=== PATIENT | male | born 1985 | race Hispanic/Latino ===

== ENCOUNTER 2021-03-31 15:52 | Inpatient (IN) | payer OTHER ==
[2021-03-31] MEDS: CEFAZOLIN/SWI 1gm 1 GM/10 ML SYR IV SCH ×5 (06:00→23:34)
[2021-03-31] MEDS ORDERED: BUPIVACAINE 0.5% PF 10 ML VIAL ONE (17:28)
[2021-03-31] MEDS ORDERED: LIDOCAINE 1% MPF 30 ML VIAL ONE (17:28)
--- NOTE | 2021-03-31 17:37 | ER ---
Nurse's Notes [facility] Name: Luz Elena Navarro Age: 36 yrs Sex: Male : 1985 Arrival Date: 03/31/2021 Time: 15:53 Bed 26 Private MD: Diagnosis: Laceration without foreign body of left hand-open fracture, left base of 5th phalynx, flexor tendon laceration Presentation: 03/31 16:08 Chief complaint: Patient states: L hand 5th digit laceration to joint. Bleeding ll1 controlled with pressure dressing. Coronavirus screen: Client denies travel out of the [place] in the last 14 days. At this time, the client does not indicate any symptoms associated with coronavirus-19. Ebola Screen: Patient denies travel to an Ebola-affected area in the 21 days before illness onset. Initial Sepsis Screen: Does the patient meet any 2 criteria? No. Patient's initial sepsis screen is negative. Does the patient have a suspected source of infection? Yes: Skin breakdown/wound. Risk Assessment: Do you want to hurt yourself or someone else? Patient reports no desire to harm self or others. Onset of symptoms was March 31, 2021. 16:08 Method Of Arrival: Ambulatory ll1 16:08 Acuity: TAY 3 ll1 17:08 Acuity: TAY 2 ss Historical: - Allergies: 16:08 No Known Allergies; ll1 - PMHx: 16:08 None; ll1 - PSHx: 16:08 None; ll1 - Immunization history:: Flu vaccine is not up to date. - Social history:: Smoking status: Patient denies any tobacco usage or history of. - Family history:: not pertinent. Screenin:20 Abuse screen: Denies threats or abuse. Denies injuries from another. Nutritional ph screening: No deficits noted. Tuberculosis screening: No symptoms or risk factors identified. Fall Risk None identified. Assessment: 17:19 General: Dr Rios at bedside to suture. ph 17:25 General: Appears in no apparent distress. uncomfortable, Behavior is calm, cooperative, ph appropriate for age. Pain: Complains of pain in left hand. Neuro: Level of Consciousness is awake, alert, obeys commands, Oriented to person, place, time, situation. Cardiovascular: Capillary refill < 3 seconds in bilateral fingers Patient's skin is warm and dry. Respiratory: Airway is patent Respiratory effort is even, unlabored, Respiratory pattern is regular, symmetrical. GI: No signs and/or symptoms were reported involving the gastrointestinal system. Derm: Skin is healthy with good turgor, Skin is pink, warm \T\ dry. Injury Description: Amputation sustained to palmar aspect of proximal phalanx of left little finger is partial. 18:30 Reassessment: Patient appears in no apparent distress at this time. Patient and/or ph family updated on plan of care and expected duration. Pain level reassessed. Patient is alert, oriented x 3, equal unlabored respirations, skin warm/dry/pink. Patient denies pain at this time. Vital Signs: 16:08 BP 155 / 99; Pulse 76; Resp 17; Temp 97.6; Pulse Ox 100% ; Height 5 ft. 9 in. (175.26 ll1 cm); Pain 10/10; 18:30 BP 138 / 87; Pulse 74; Resp 18; Pulse Ox 98% on R/A; ph ED Course: 15:53 Patient arrived in ED. mr 16:07 Arm band placed on. ll1 16:09 Triage completed. ll1 16:19 Kayy Vaz RN is Primary Nurse. ph 16:20 Patient has correct armband on for positive identification. Bed in low position. Call ph light in reach. Side rails up X 1. Pulse ox on. NIBP on. Door closed. Noise minimized. 16:21 Patrice Rios MD is Attending Physician. millicent 17:25 Assist provider with laceration repair on MCP of left little finger that was 2.5 cm. or ph less using sutures. Set up tray. Performed by Patrice Rios MD Dressed with 4X4s, Kerlix, Patient tolerated well. 17:35 Will Cabrear MD is Hospitalizing Provider. millicent 17:41 Hand Left 3 View XRAY In Process Unspecified. EDMS 19:00 Initial lab(s) drawn, by me, sent to lab. Inserted saline lock: 22 gauge in right ph antecubital area, using aseptic technique. Blood collected. 19:11 Primary Nurse role handed off by Kayy Vaz, CYNTHIA 19:35 Patient admitted, IV remains in place. ph Administered Medications: 17:07 CANCELLED (Duplicate Order): Bupivacaine (0.5 %) 5 ml 10 ml Infiltration once millicent 17:19 Drug: Lidocaine (1 %) 5 ml Volume: 5 ml; Route: Infiltration; ph 19:37 Follow up: Response: No adverse reaction ph 19:00 Drug: Ancef (cefazolin) 1 grams Route: IVPB; Site: right antecubital; ph 19:37 Follow up: Response: No adverse reaction; IV Status: Completed infusion ph 19:05 Drug: Tetanus-Diphtheria Toxoid Adult 0.5 ml {Supervisor General: Blaast. Exp: ph 11/26/2022. Lot #: [id number]. } Route: IM; Site: right deltoid; 19:37 Follow up: Response: No adverse reaction ph 19:05 Drug: Clindamycin 900 mg Route: IVPB; Infused Over: 30 mins; Site: right antecubital; ph Outcome: 17:36 Decision to Hospitalize by Provider. [facility] 04/01 11:38 Patient left the ED. Signatures: Dispatcher [employer] EDMS Patrice Rios MD MD cha Rivera, Mary mr Smirch, Shelby, CYNTHIA RN Kayy Vaz RN RN Alec Moise RN RN ll1
--- NOTE | 2021-03-31 17:37 | EDPHYS ---
Physician Documentation [facility] Name: Luz Elena Navarro Age: 36 yrs Sex: Male : 1985 Arrival Date: 03/31/2021 Time: 15:53 Bed 26 Private MD: ED Physician Patrice Rios HPI: 03/31 17:28 This 36 yrs old Male presents to ER via Ambulatory with complaints of Finger millicent Laceration. 17:28 The patient or guardian reports decreased range of motion. The complaints affect the millicent MCP of left little finger. Context: The problem was sustained at work. Onset: The symptoms/episode began/occurred just prior to arrival. Modifying factors: The symptoms are alleviated by elevation, pressure to area, the symptoms are aggravated by movement, dependent position. Associated signs and symptoms: The patient has no apparent associated signs or symptoms. Severity of symptoms: At their worst the symptoms were moderate, in the emergency department the symptoms are unchanged. The patient has not experienced similar symptoms in the past. Historical: - Allergies: 16:08 No Known Allergies; ll1 - PMHx: 16:08 None; ll1 - PSHx: 16:08 None; ll1 - Immunization history:: Flu vaccine is not up to date. - Social history:: Smoking status: Patient denies any tobacco usage or history of. - Family history:: not pertinent. ROS: 17:28 Constitutional: Negative for fever, chills, and weight loss, Eyes: Negative for injury, millicent pain, redness, and discharge, ENT: Negative for injury, pain, and discharge, Neck: Negative for injury, pain, and swelling, Cardiovascular: Negative for chest pain, palpitations, and edema, Respiratory: Negative for shortness of breath, cough, wheezing, and pleuritic chest pain, Abdomen/GI: Negative for abdominal pain, nausea, vomiting, diarrhea, and constipation, Back: Negative for injury and pain, : Negative for injury, bleeding, discharge, and swelling, Skin: Negative for injury, rash, and discoloration, Neuro: Negative for headache, weakness, numbness, tingling, and seizure, Psych: Negative for depression, anxiety, suicide ideation, homicidal ideation, and hallucinations, Allergy/Immunology: Negative for hives, rash, and allergies, Endocrine: Negative for neck swelling, polydipsia, polyuria, polyphagia, and marked weight changes, Hematologic/Lymphatic: Negative for swollen nodes, abnormal bleeding, and unusual bruising. 17:28 MS/extremity: Positive for decreased range of motion, pain, swelling, tenderness, of the palmar aspect of proximal phalanx of left little finger. Exam: 17:28 Constitutional: This is a well developed, well nourished patient who is awake, alert, millicent and in no acute distress. Head/Face: Normocephalic, atraumatic. Eyes: Pupils equal round and reactive to light, extra-ocular motions intact. Lids and lashes normal. Conjunctiva and sclera are non-icteric and not injected. Cornea within normal limits. Periorbital areas with no swelling, redness, or edema. ENT: Nares patent. No nasal discharge, no septal abnormalities noted. Tympanic membranes are normal and external auditory canals are clear. Oropharynx with no redness, swelling, or masses, exudates, or evidence of obstruction, uvula midline. Mucous membranes moist. Neck: Trachea midline, no thyromegaly or masses palpated, and no cervical lymphadenopathy. Supple, full range of motion without nuchal rigidity, or vertebral point tenderness. No Meningismus. Chest/axilla: Normal chest wall appearance and motion. Nontender with no deformity. No lesions are appreciated. Cardiovascular: Regular rate and rhythm with a normal S1 and S2. No gallops, murmurs, or rubs. Normal PMI, no JVD. No pulse deficits. Respiratory: Lungs have equal breath sounds bilaterally, clear to auscultation and percussion. No rales, rhonchi or wheezes noted. No increased work of breathing, no retractions or nasal flaring. Abdomen/GI: Soft, non-tender, with normal bowel sounds. No distension or tympany. No guarding or rebound. No evidence of tenderness throughout. Back: No spinal tenderness. No costovertebral tenderness. Full range of motion. Male : Normal genitalia with no discharge or lesions. Skin: Warm, dry with normal turgor. Normal color with no rashes, no lesions, and no evidence of cellulitis. Neuro: Awake and alert, GCS 15, oriented to person, place, time, and situation. Cranial nerves II-XII grossly intact. Motor strength 5/5 in all extremities. Sensory grossly intact. Cerebellar exam normal. Normal gait. Psych: Awake, alert, with orientation to person, place and time. Behavior, mood, and affect are within normal limits. 17:28 Musculoskeletal/extremity: ROM: limited active range of motion, in the palmar aspect of proximal phalanx of left little finger, Circulation is intact in all extremities. Sensation intact. Compartment Syndrome exam of affected extremity: is normal. 19:31 ECG was reviewed by the Attending Physician. [facility] Vital Signs: 16:08 BP 155 / 99; Pulse 76; Resp 17; Temp 97.6; Pulse Ox 100% ; Height 5 ft. 9 in. (175.26 ll1 cm); Pain 10/10; 18:30 BP 138 / 87; Pulse 74; Resp 18; Pulse Ox 98% on R/A; ph Laceration: 17:31 Wound Repair of 1.5cm ( 0.6in ) subcutaneous laceration to palmar aspect of proximal millicent phalanx of left little finger. Skin/tissue flap noted.. Distal neuro/vascular/tendon intact. Anesthesia: Local anesthetic administered with 5 mls of 0.5% marcaine, Local anesthetic administered with 5 mls of 0.5% marcaine. Wound prep: Moderate cleansing by me, Copious irrigation. Skin closed with 5 5-0 Prolene using interrupted sutures and sterile technique. Dressed with Neosporin, 4x4's, pressure dressing. Patient tolerated well. MDM: 16:21 Patient medically screened. [facility] 17:31 Differential diagnosis: open fracture. Data reviewed: vital signs, nurses notes, [facility] radiologic studies, plain films. 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 rate is 76 beats/min, rhythm is regular, Pulse oximetry: on room air is 100 %. Test interpretation: by ED physician or midlevel provider: ECG, plain radiologic studies. Counseling: I had a detailed discussion with the patient and/or guardian regarding: the historical points, exam findings, and any diagnostic results supporting the discharge/admit diagnosis, lab results, radiology results, the need for further work-up and treatment in the hospital. 03/31 17:28 Order name: CBC with Diff [facility] 03/31 17:28 Order name: Comprehensive Metabolic Panel [facility] 03/31 18:31 Order name: COVID-19 : Document "Date of Symptom Onset" if Symptomatic. 03/31 19:20 Order name: CORONAVIRUS EDMS 03/31 19:53 Order name: CMP mw2 03/31 19:53 Order name: CBC with Diff mw2 03/31 20:05 Order name: COVID-19 : Document "Date of Symptom Onset" if Symptomatic. mw2 03/31 20:17 Order name: CBC with Automated Diff EDMS 03/31 20:17 Order name: CORONAVIRUS EDMS 03/31 20:42 Order name: CBC Smear Scan EDMS 03/31 21:20 Order name: SARS-COV-2 RT PCR EDMS 03/31 21:23 Order name: Comprehensive Metabolic Panel EDMS 04/01 04:08 Order name: CBC with Automated Diff EDMS 04/01 04:11 Order name: Basic Metabolic Panel EDHI 03/31 17:03 Order name: Dressing - Wound; Complete Time: 17:18 [facility] 03/31 17:03 Order name: Gloves, Sterile; Complete Time: 17:18 [facility] 03/31 17:03 Order name: Prolene, Sutures; Complete Time: 17:18 [facility] 03/31 17:03 Order name: Setup Suture Tray; Complete Time: 17:18 [facility] 03/31 17:09 Order name: Hand Left 3 View XRAY [facility] 03/31 17:28 Order name: Wound dressing; Complete Time: 18:30 [facility] 03/31 17:34 Order name: EKG; Complete Time: 17:34 [facility] 03/31 17:34 Order name: EKG - Nurse/Tech [facility] EC:31 Rate is 60 beats/min. Rhythm is regular. QRS Manly is Normal. [place] interval is normal. QRS millicent interval is normal. QT interval is normal. No Q waves. T waves are Normal. No ST changes noted. Clinical impression: Normal ECG and No evidence of ischemia. Interpreted by me. Reviewed by me. 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 Exp: ph 11/26/2022. Lot #: [id number]. } Route: IM; Site: right deltoid; 19:37 Follow up: Response: No adverse reaction ph 19:05 Drug: Clindamycin 900 mg Route: IVPB; Infused Over: 30 mins; Site: right antecubital; ph Disposition Summary: 03/31/21 17:36 Hospitalization Ordered Hospitalization Status: Observation [facility] Provider: Will Cabrera cha Condition: Stable millicent Problem: new millicent Symptoms: have improved [facility] Bed/Room Type: Standard [facility] Location: Telemetry/MedSurg (Inpatient)(04/01/21 11:20) [place] Room Assignment: On license of [facility](04/01/21 11:20) [place] Diagnosis - Laceration without foreign body of left hand - open fracture, left base of 5th millicent phalynx, flexor tendon laceration Forms: - Medication Reconciliation Form millicent - SBAR form [facility] Signatures: Dispatcher [employer] EDMS Patrice Rios MD MD [facility] Kayy Vaz, CYNTHIA MARIE Marci Redding RN CYNTHIA [facility] Alec Moise RN RN ll1 Corrections: (The following items were deleted from the chart) 17:07 17:03 Bupivacaine (0.5 %) 5 ml 10 ml Infiltration once ordered. [facility] 17:11 17:03 Hand Right 3 View+RAD.RAD.BRZ ordered. EDHI EDMS 23:45 17:36 Telemetry/MedSurg (observation) [facility] 23:45 17:36 [facility] 04/01 11:20 03/31 23:45 BR ER HOLD [facility] [place] 04/01 11:20 03/31 23:45 ERHOLD- [facility] [place]
--- NOTE | 2021-03-31 17:54 | RAD REPORT ---
EXAM DESCRIPTION: RAD - Hand Left 3 View - 03/31/2021 5:42 pm CLINICAL HISTORY: PAIN COMPARISON: No comparisons FINDINGS: No left hand fractures identified. No malalignment. No radiopaque foreign body per IMPRESSION: No acute osseus abnormality involving the left hand.
[2021-03-31] MEDS ORDERED: CLINDAMYCIN 900MG/D5W 900 MG/50 ML IVPB IV ONE (19:11)
[2021-03-31] MEDS ORDERED: ONDANSETRON 4 MG/2 ML VIAL ONE (19:11)
[2021-03-31] MEDS ORDERED: MORPHINE 4 MG/ML SYR ONE (19:11)
[2021-03-31] MEDS ORDERED: CEFAZOLIN/SWI 1gm 1 GM/10 ML SYR ONE (19:11)
[2021-03-31] MEDS ORDERED: TETANUS & DIPHTHERIA TOX,ADULT 0.5 ML VIAL ONE (19:11)
[2021-03-31] MEDS ORDERED: MORPHINE 4 MG/ML SYR IV PRN (19:18)
[2021-03-31] MEDS ORDERED: CEFAZOLIN/NS 1gm 1 GM/50 ML BAG IVPB SCH (19:18)
[2021-03-31] MEDS ORDERED: ONDANSETRON 4 MG/2 ML VIAL IV PRN (19:18)
[2021-03-31] MEDS ORDERED: ACETAMINOPHEN 325 MG TABLET PO PRN (19:18)
[2021-03-31] MEDS: D5 0.45 NS 1,000 ML IV SCH (19:38)
[2021-03-31] MEDS ORDERED: D5 0.45 NS 1,000 ML IV ONE (19:59)
[2021-03-31 20:08] LABS: Absolute Lymphocytes (CBC) 2.8 K/uL (0.7-4.9); Basophils % 0.6 % (0-1.3); Hematocrit 42.1 % (39.6-49.0); MPV 10.7 fL (7.6-11.3); RBC Red Blood Cell Count 4.63 M/uL (4.33-5.43)
[2021-03-31 20:41] LABS: Blood Morphology Comment NOT SEEN (NOT SEEN); Platelet Estimate ADEQ; White Blood Cell Scan OK (OK)
[2021-03-31] MEDS ORDERED: MEPERIDINE HCL 50 MG/ML IM PRN (21:04)
[2021-03-31 21:22] LABS: Albumin 4.2 g/dL (3.4-5.0); Bilirubin Total 0.3 mg/dL (0.2-1.0); Potassium 4.1 mmol/L (3.5-5.1); Protein, Total 7.5 g/dL (6.4-8.2)
[2021-03-31 22:15] VITALS: BMI 23.6
[2021-03-31] MEDS ORDERED: MEPERIDINE HCL 50 MG/ML ONE (22:40)
[2021-03-31] MEDS ORDERED: CEFAZOLIN SODIUM 1 GM/VIAL ONE (23:53)
[2021-04-01] MEDS: CLINDAMYCIN PHOSPHATE 900 MG in NA CHLORIDE 0.9% 50 ML IV SCH ×2 (00:18→08:23)
[2021-04-01] MEDS ORDERED: CLINDAMYCIN 900MG/D5W 900 MG/50 ML IVPB IV ONE (00:39)
[2021-04-01] MEDS: D5 0.45 NS 1,000 ML IV SCH ×2 (03:18→11:18)
[2021-04-01] MEDS ORDERED: D5 0.45 NS 1,000 ML IV ONE (03:41)
[2021-04-01 04:06] LABS: Absolute Lymphocytes (CBC) 3.2 K/uL (0.7-4.9); Basophils % 0.6 % (0-1.3); Hematocrit 38.2 % (39.6-49.0); Lymphocytes % 39.4 % (15.3-44.8); MPV 10.6 fL (7.6-11.3); RBC Red Blood Cell Count 4.22 M/uL (4.33-5.43)
[2021-04-01 04:11] LABS: Potassium 3.7 mmol/L (3.5-5.1)
[2021-04-01] MEDS: CEFAZOLIN/SWI 1gm 1 GM/10 ML SYR IV SCH (05:17)
[2021-04-01] MEDS ORDERED: CEFAZOLIN SODIUM 1 GM/VIAL ONE (05:28)
[2021-04-01] MEDS ORDERED: ASPIRIN EC 81 MG TAB PO ONE (08:32)
[2021-04-01] MEDS ORDERED: FAMOTIDINE 20 MG/2 ML VIAL IV ONE (08:32)
[2021-04-01] MEDS ORDERED: AZITHROMYCIN 500 MG INJ IVPB ONE (08:32)
[2021-04-01] MEDS ORDERED: NA CHLORIDE 0.9% 250 ML ONE (08:32)
[2021-04-01] MEDS ORDERED: CEFTRIAXONE/SWI 1gm 1 GM/10 ML SYR ONE (08:32)
[2021-04-01] MEDS ORDERED: ACETAMINOPHEN 325 MG TABLET ONE (08:47)
[2021-04-01] MEDS ORDERED: MORPHINE 4 MG/ML SYR ONE (08:47)
[2021-04-01] MEDS ORDERED: Ringers Lactate 1,000 ML IV ONE (08:59)
[2021-04-01] MEDS ORDERED: propofoL 200 MG/20 ML VIAL IV ONE (09:39)
[2021-04-01] MEDS ORDERED: LIDOCAINE 1% MPF 5 ML VIAL ONE (09:40)
[2021-04-01] MEDS ORDERED: MIDAZOLAM HCL 2 MG/2 ML INJ ONE (09:40)
[2021-04-01] MEDS ORDERED: FENTANYL CITR 250 MCG/5 ML ONE (09:40)
[2021-04-01] MEDS ORDERED: NS 0.9% VIAL 10 ML ONE (09:40)
[2021-04-01] MEDS ORDERED: VECURONIUM 10 MG/VIAL IV ONE (09:41)
[2021-04-01] MEDS ORDERED: ONDANSETRON 4 MG/2 ML VIAL ONE (09:41)
[2021-04-01] MEDS ORDERED: KETOROLAC 30 MG/ML INJ ONE (11:44)
[2021-04-01] MEDS ORDERED: GLYCOPYRROLATE 0.2 MG/ML SYR ONE (11:44)
[2021-04-01] MEDS ORDERED: NEOSTIGMINE 1 MG/ML -5 ML ONE (11:44)
[2021-04-01] MEDS ORDERED: HYDROCODONE/APAP 10/325 TAB PO ONE (13:15)
[2021-04-01 13:57] VITALS: TEMP 97.5
[2021-04-01 14:02] VITALS: O2SAT 99
[2021-04-01] MEDS ORDERED: HYDROCODONE/APAP 10/325 TAB ONE (14:43)
[2021-04-01 15:34] VITALS: BP 128/66
--- NOTE | 2021-04-05 10:34 | OP ---
Surgeon: Will Cabrera MD Preoperative Diagnosis: Saw laceration to the left little finger. Postoperative Diagnoses: 1.Saw laceration to the left little finger with laceration to superficial profundus of the little fi nger, laceration of ulnar digital artery, digital nerve, and laceration to metacarpal bone. Procedure Performed: Debridement of skin and subcutaneous tissues of superficial profundus _ ulnar digital nerve, splint, simple closure of 8 cm wound. Anesthesia: General. Operative Note: After satisfactory induction of general anesthesia, left hand was prepped with Betad ine scrub and Betadine paint. Dry sterile drapes were applied in the usual manner. Arm was elevated , exsanguinated with an Esmarch, tourniquet inflated to 250 mmHg. Hand was placed on a Roto Lock tab le. Proximal was made at the transverse laceration over the ulnar aspect of the hand, lac eration into the bone but the bone was 50% laceration of the thickness to bone. The metac arpal head region was not involved with the joint. Superficial profundus was identified distally and proximally. The retracted incision was made in the region of the A1 and then 4-0 Prolene core sutur es were placed 2 on each superficial profundus and then they were used to pass through to the lacerat ed side. The superficialis was repaired first with core sutures of 4-0 Prolene, two were done. Then profundus and sewn with a 4-0 Prolene sutures, core sutures. After that the repair of th e profundus was done with 6-0 Prolene. Then the patient had the microscope brought to the field. Th e nerves and arteries were dissected proximal distally and the arteries were repaired first with 10-0 Prolene sutures clamps and freshened. It also irrigated with saline. Then the nerve was repaired with 9-0 nylon suture, epineural repair. Tourniquet was released. Then the wound was clos ed with 4-0 Prolene vertical mattress, half buried mattress. Dressed with Xeroform, 2 inch Wayne, Ke rlix, and a splint holding the wrist in a 45-degree flexion, MCP 90, PIP DIP 0. The patient tolerate d procedure well and returned to Recovery. NIDIA/FAUSTO Voice ID: [id number] Report ID: [id number]
== END 2021-04-01 15:53 | disposition home or self-care (01) | DRG 580 ==
LOC: ER 15:52 → ERHOLD 17:51 → OBSVTOIN 04-01 12:07 → 2ND 04-01 13:33 → 3RD 04-01 13:40
PROVIDERS: ADMIT Specialist; ATTEND Specialist
PROC: 03QA0ZZ Repair Left Ulnar Artery, Open Approach (ICD-10-PCS; 2021-04-01)
PROC: 0KQD0ZZ Repair Left Hand Muscle, Open Approach (ICD-10-PCS; 2021-04-01)
PROC: 01Q40ZZ Repair Ulnar Nerve, Open Approach (ICD-10-PCS; principal; 2021-04-01 15:15)
DX: S61.217A Laceration without foreign body of left little finger without damage to nail, initial encounter (principal); S66.127A Laceration of flexor muscle, fascia and tendon of left little finger at wrist and hand level, initial encounter; S64.497A Injury of digital nerve of left little finger, initial encounter; W27.0XXA Contact with workbench tool, initial encounter; Y92.69 Other specified industrial and construction area as the place of occurrence of the external cause; Z20.822 Contact with and (suspected) exposure to COVID-19
CPT/HCPCS: 36415; 80048; 80053; 85025; 90471; 90714; 93005; 96365; 96375; 99284; G0378; J0456; J0690; J0696; J2175; J2250; J2405; J2704; J2710; J3010; J7050; J7120; J7799; S0077; U0003

== ENCOUNTER 2021-04-20 12:21 | Emergency (ER) | payer OTHER ==
--- NOTE | 2021-04-20 13:23 | EDPHYS ---
Physician Documentation [facility] Name: Luz Elena Navarro Age: 36 yrs Sex: Male : 1985 Arrival Date: 04/20/2021 Time: 12:25 Bed Waiting Private MD: ED Physician David Masterson HPI: 04/20 14:18 This 36 yrs old Male presents to ER via Ambulatory with complaints of Suture kb Removal. 14:18 The patient has sutures on the right hand. Previous treatment: The patient was kb initially treated 19 day(s) ago, the care was rendered at [facility] OR. Sutures/carlene progress: The patient has no c/o's. The wound is well-healing with no redness, swelling, discharge, or dehiscence reported. The patient has not experienced similar symptoms in the past. The patient has been recently been admitted at [facility], by Dr. Cabrera. Historical: - Allergies: 13:23 No Known Allergies; kg - Home Meds: 13:23 None [Active]; kg - PMHx: 13:23 None; kg - PSHx: 13:24 Left hand sx; kg - Immunization history:: Adult Immunizations not up to date, Client reports receiving the 1st dose of the Covid vaccine, January 2021 [employer]. - Social history:: Smoking status: Patient denies any tobacco usage or history of. ROS: 14:17 Constitutional: Negative for fever, chills, and weight loss. kb 14:17 Skin: Positive for of the right hand, sutures in place. Exam: 14:17 Constitutional: This is a well developed, well nourished patient who is awake, alert, kb and in no acute distress. Head/Face: Normocephalic, atraumatic. ENT: Moist Mucous membranes Respiratory: Respirations even and unlabored. No increased work of breathing, no retractions or nasal flaring. MS/ Extremity: Pulses equal, no cyanosis. Neurovascular intact. Full, normal range of motion. Neuro: Awake and alert, GCS 15, oriented to person, place, time, and situation. Moves all extremities. Normal gait. Psych: Awake, alert, with orientation to person, place and time. Behavior, mood, and affect are within normal limits. 14:17 Skin: Wound recheck: Suture laceration closure: the wound is healing well, the edges are well approximated, no evidence of dehiscence, no drainage, no erythema, no swelling. Vital Signs: 13:21 Pulse 63; Resp 20; Temp 98.8; Pulse Ox 99% on R/A; Weight 76.2 kg; Height 5 ft. 9 in. kg (175.26 cm); Pain 2/10; 13:21 Body Mass Index 24.81 (76.20 kg, 175.26 cm) kg MDM: 13:23 Patient medically screened. kb 13:41 Data reviewed: vital signs, nurses notes. Data interpreted: Pulse oximetry: on room air kb is 99 %. Interpretation: normal. Counseling: I had a detailed discussion with the patient and/or guardian regarding: the historical points, exam findings, and any diagnostic results supporting the discharge/admit diagnosis, the need for outpatient follow up, a hand specialist. 14:17 ED course: Pt educated that he needs to follow up with Dr Cabrera for removal of kb surgical sutures. Administered Medications: No medications were administered Disposition: 13:41 Encounter for removal of surgical sutures. kb 18:05 Co-signature as Attending Physician, David Masterson MD. rn Disposition Summary: 04/20/21 13:23 Discharge Ordered Location: Home kb Condition: Stable kb Diagnosis - Encounter for screening, unspecified kb Followup: kb - With: Emergency Department - When: As needed - Reason: Worsening of condition Followup: kb - With: Private Physician - When: 2 - 3 days - Reason: Recheck today's complaints, Continuance of care, Re-evaluation by your physician Forms: - Medication Reconciliation Form kb - Thank You Letter kb - Antibiotic Education kb - Prescription Opioid Use kb Signatures: Kathie Alexis FNP-C FNP-David Steen MD MD rn Graham, Kristen, RN RN kg
--- NOTE | 2021-04-20 13:27 | ER ---
Nurse's Notes [facility] Name: Luz Elena Navarro Age: 36 yrs Sex: Male : 1985 Arrival Date: 04/20/2021 Time: 12:25 Bed Waiting Private MD: Diagnosis: Encounter for screening, unspecified Presentation: 04/20 13:21 Chief complaint: Patient states: Pt stated, " I would like to have these sutures kg removed. ". Coronavirus screen: Client denies travel out of the [place] in the last 14 days. At this time, unable to obtain information related to travel outside the [place] At this time, the client does not indicate any symptoms associated with coronavirus-19. Ebola Screen: Patient negative for fever greater than or equal to 101.5 degrees Fahrenheit, and additional compatible Ebola Virus Disease symptoms Patient denies exposure to infectious person. Patient denies travel to an Ebola-affected area in the 21 days before illness onset. Initial Sepsis Screen: Does the patient meet any 2 criteria? No. Patient's initial sepsis screen is negative. Does the patient have a suspected source of infection? No. Patient's initial sepsis screen is negative. Risk Assessment: Do you want to hurt yourself or someone else? Patient reports no desire to harm self or others. Onset of symptoms is unknown. 13:21 Method Of Arrival: Ambulatory kg 13:21 Acuity: TAY 5 kg Triage Assessment: 13:24 General: Appears in no apparent distress. Behavior is calm, cooperative, appropriate kg for age. Pain: Denies pain. Historical: - Allergies: 13:23 No Known Allergies; kg - Home Meds: 13:23 None [Active]; kg - PMHx: 13:23 None; kg - PSHx: 13:24 Left hand sx; kg - Immunization history:: Adult Immunizations not up to date, Client reports receiving the 1st dose of the Covid vaccine, January 2021 [employer]. - Social history:: Smoking status: Patient denies any tobacco usage or history of. Screenin:25 Abuse screen: Denies threats or abuse. Denies injuries from another. Nutritional kg screening: No deficits noted. Tuberculosis screening: No symptoms or risk factors identified. Fall Risk None identified. Vital Signs: 13:21 Pulse 63; Resp 20; Temp 98.8; Pulse Ox 99% on R/A; Weight 76.2 kg; Height 5 ft. 9 in. kg (175.26 cm); Pain 2/10; 13:21 Body Mass Index 24.81 (76.20 kg, 175.26 cm) kg ED Course: 12:25 Patient arrived in ED. mr 13:22 [facility] kb 13:22 David Masterson MD is Attending Physician. kb 13:23 Triage completed. kg 13:24 Arm band placed on right wrist. kg 13:25 Patient has correct armband on for positive identification. kg 13:25 No provider procedures requiring assistance completed. Patient did not have IV access kg during this emergency room visit. Administered Medications: No medications were administered Outcome: 13:23 Discharge ordered by . kb 13:25 Medical screen evaluation completed per provider. Kathie RATE SETTER spoke to patient kg 13:25 Condition: good 13:26 Patient left the ED. kg Signatures: Kathie Alexis FNP-C FNP-Arlen Tilley mr VuongKira, RN RN kg
[2021-04-20 13:32] VITALS: TEMP 98.8; O2SAT 99
== END 2021-04-20 13:26 | disposition home or self-care (01) ==
LOC: ER 12:21
DX: Z48.02 Encounter for removal of sutures (principal)
CPT/HCPCS: 99281